=== PATIENT | female | born 1970 | race Caucasian/White ===

== ENCOUNTER 2019-04-09 00:02 | Observation (INO) | payer MEDICARE, SELFPAY ==
[2019-04-09] VITALS (15 sets, daily range): BP systolic 117–157; BP diastolic 48–102; PULSE 67–102; RESP 15–22; TEMP 36.4–36.7; O2SAT 93–99; BMI 61.9; BMI 60.3
--- NOTE | 2019-04-09 00:24 | DI.CT.S_ITS ---
PROCEDURE: CT SOFT TISSUE NECK W CON INDICATIONS: swelling abscess TECHNIQUE: After the administration of intravenous contrast, 3.0 mm axial sections acquired from the sella to the aortic arch. Additional oblique axial 3.0 mm sections acquired through the pharynx. 3 mm thick coronal and sagittal reformats were generated. For radiation dose reduction, the following was used: automated exposure control. COMPARISON: None. FINDINGS: Image quality: Diagnostic, with note made of motion artifact. Lymph nodes: Prominent lymph nodes are seen within the left submandibular region, which are not frankly enlarged. The largest solitary lymph node measures 5 x 12 mm. Vessels: Visualized vasculature appears patent. Neck spaces: Soft tissue swelling is seen within the left submandibular region, with associated fatty stranding. No focal fluid collections are seen to suggest abscess. The oropharynx, nasopharynx, and pharynx demonstrate no mucosal lesions. The vocal cords, false vocal cords, pyriform sinuses, epiglottis, vallecula, and tongue base all appear normal. Glands: The left submandibular gland is mildly more prominent and hyperenhancing compared to the right submandibular gland. The parotid glands appear normal. Thyroid gland demonstrates no significant CT abnormality. Miscellaneous: Visualized brain and orbits appear normal. Lung apices appear clear. Superficial soft tissues appear normal. Bones: No related bone abnormality is seen. No osteomyelitis. No suspicious bony lesions. Visualized sinuses and mastoids appear unremarkable. IMPRESSION: Left submandibular soft tissue swelling and fatty stranding with mildly enlarged lymph nodes (which are considered to be reactive). No drainable abscess can be seen. The left submandibular gland is slightly more prominent and hyperenhancing than the right. This may be reactive in nature or the cause of inflammation may be related to the left submandibular gland. Note: No significant discrepancy from the preliminary report. Dictated by: Abad Whatley M.D. on 04/09/2019 at 7:37 Approved by: Abad Whatley M.D. on 04/09/2019 at 7:41
--- NOTE | 2019-04-09 00:31 | ED.DENTAL ---
HPI - Dental/Oral General Chief complaint: Dental/Oral Stated complaint: Cracked tooth Time Seen by Provider: 04/09/19 00:16 Source: patient Mode of arrival: ambulatory Limitations: no limitations History of Present Illness HPI Narrative: Patient is a 49-year-old female who presents with all swelling under her tongue and neck swelling. She states that she cracked a tooth (left lower) 1 week ago she saw a dentist a few days ago she scheduled to have the tooth removed next week. However this evening she noticed that under her tongue started swelling and she is having difficulty swallowing and she feels like her neck is expanding. She still able talk she denies hoarseness of voice. She is not currently on any antibiotics. Related Data Home Medications Medication Instructions Recorded Confirmed duloxetine 120 mg PO DAILY 04/09/19 04/09/19 levothyroxine 125 mcg PO DAILY 04/09/19 04/09/19 tizanidine 4 mg PO PRN PRN 04/09/19 04/09/19 Allergies Allergy/AdvReac Type Severity Reaction Status Date / Time cephalexin [From Keflex] Allergy Verified 04/09/19 00:14 doxycycline Allergy Verified 04/09/19 00:14 metronidazole [From Flagyl] Allergy Verified 04/09/19 00:14 Sulfa (Sulfonamide Allergy Verified 04/09/19 00:14 Antibiotics) Review of Systems Review of Systems ROS Unobtainable: All systems reviewed & are unremarkable except as noted in HPI and below Constitutional Denies chills, Denies fever(s), Denies lethargy and Denies weakness Eyes Denies change in vision, Denies eye discharge, Denies irritation and Denies loss of vision ENT Ears, Nose, Mouth, and Throat: Reports as per HPI, Reports throat swelling and Reports tongue swelling Cardiovascular Denies chest pain, Denies irregular heart rhythm, Denies lightheadedness, Denies palpitations, Denies dyspnea, Denies dyspnea on exertion and Denies orthopnea Respiratory Denies cough, Denies dyspnea, Denies dyspnea on exertion and Denies wheezing Gastrointestinal Gastrointestinal: Denies abdominal pain, Denies change in bowel habits, Denies diarrhea, Denies nausea and Denies vomiting Genitourinary Denies hematuria, Denies flank pain, Denies urinary incontinence and Denies urinary urgency Musculoskeletal Denies back pain, Denies muscle weakness, Denies numbness and Denies tingling Integumentary/Breasts Denies pruritus, Denies erythema, Denies rash and Denies wounds Neurologic Denies loss of vision, Denies numbness, Denies tingling and Denies weakness Endocrine Denies palpitations Allergic/Immunologic Reports throat swelling, Reports tongue swelling and Denies wheezing [facility] Medical History Hypertension (Acute) Hypothyroid (Acute) Social History Smoking Status: Unknown if ever smoked Social History Smoking Status: Unknown if ever smoked Exam Initial Vital Signs Initial Vital Signs: Vital Signs Temperature 97.7 F 04/09/19 00:08 Pulse Rate 102 H 04/09/19 00:08 Respiratory Rate 15 04/09/19 00:08 Blood Pressure 148/102 H 04/09/19 00:08 Pulse Oximetry 97 04/09/19 00:08 GENERAL: Obese female and in no acute distress. HEENT: Head atraumatic,EOMI, pupils reactive, MOUTH: She does have swelling anterior underneath her tongue. No dental abscess. NECK: Swelling under left submandibular area CARDIOVASCULAR: Regular rate and rhythm without murmurs, rubs or gallops. RESPIRATORY: Breath sounds equal bilaterally, no wheezes rales or rhonchi. ABDOMEN: Soft, nontender. Normoactive bowel sounds all 4 quadrants. No guarding or rebound. EXTREMITIES: Normal range of motion, no clubbing or edema. Neurovascularly intact NEUROLOGICAL: Alert and oriented x4.Normal gait and speech. Cranial nerves II through XII grossly intact. SKIN: Warm, dry, no laceration, no petechiae, no rashes or lesions. Course Orders Ordered: ED Orders 04/09/19 00:24 CT soft tissue neck w con Stat 04/09/19 00:35 Complete Blood Count AUTO DIFF Stat Comprehensive Metabolic Panel Stat Lactate (Lactic Acid) Stat Procalcitonin Stat 04/09/19 00:54 Blood Culture Stat Sodium Chloride (Normal Saline 0.9%) 1,000 mls @ 200 mls/hr IV CONT LUMA Last Admin: 04/09/19 00:54 Dose: 200 mls/hr Discontinued Medications Dexamethasone (Decadron) 10 mg IV NOW ONE Stop: 04/09/19 00:25 Last Admin: 04/09/19 00:54 Dose: 10 mg Dexamethasone (Decadron) 10 mg IV NOW ONE Stop: 04/09/19 02:11 Last Admin: 04/09/19 02:21 Dose: 10 mg Hydromorphone HCl (Dilaudid) 0.5 mg IV NOW ONE Stop: 04/09/19 02:28 Last Admin: 04/09/19 02:30 Dose: 0.5 mg Ampicillin Sodium/Sulbactam (Sodium 3 gm/ Sodium Chloride) 100 mls @ 100 mls/hr IV NOW ONE Stop: 04/09/19 00:25 Last Admin: 04/09/19 01:06 Dose: 100 mls/hr Morphine Sulfate (Morphine) 4 mg IV NOW ONE Stop: 04/09/19 00:52 Last Admin: 04/09/19 00:54 Dose: 4 mg Consultations Consultation #1: DR. JACKMAN ENT UPDATED PATIENT'S SYMPTOMS TEST RESULTS CONCERN FOR YANA ANGINA. AGREES WITH ADMISSION TO HOSPITALIST RECOMMEND DECADRON 10 MG EVERY 12 HOURS AND IV ANTIBIOTICS. Call if patient is worsening. At but at this time no need for any surgical intervention. Time: 02:07 Consultation #2: Rupa HUA, updated patient's symptoms test results agrees with admission Time: 02:15 Vital Signs - 8 hr 04/09/19 00:08 Temperature 97.7 F Pulse Rate 102 H Respiratory Rate 15 Blood Pressure 148/102 H Pulse Oximetry 97 MDM - Dental/Oral Lab Data Attestation: I reviewed the patient's lab results. Result diagrams: 04/09/19 00:35 04/09/19 00:35 Lab Results 04/09/19 04/09/19 04/09/19 Range/Units 00:35 00:35 00:35 WBC 8.8 (4.5-11.0) X10^3/uL RBC 4.35 (4.0-5.2) X10^6/uL Hgb 12.9 (12.0-16.0) g/dL Hct 38.3 (36-46) % MCV 88.0 (80-100) fL MCH 29.7 (26-34) PG MCHC 33.7 (30-36) % RDW 14.4 (11.6-14.8) % Plt Count 266 (150-400) X10^3/uL Neut % (Auto) 70.3 (50-75) % Lymph % (Auto) 21.9 L (25-40) % [place] % (Auto) 6.5 (3-14) % Eos % (Auto) 0.9 L (2-4) % Baso % (Auto) 0.4 (0-2) % Neut # (Auto) 6200 (2562-3726) /uL Lymph # (Auto) 1900 (1250-5577) /uL [place] # (Auto) 600 (0-900) /uL Eos # (Auto) 100 (0-450) /uL Baso # (Auto) 0 (0-100) /uL Sodium 139 (137-145) mmol/L Potassium 3.9 (3.4-5.1) mmol/L Chloride 103 (98-107) mmol/L Carbon Dioxide 25 (22-32) mmol/L BUN 22 H (7-17) mg/dL Creatinine 0.70 (0.52-1.04) mg/dL Estimated GFR > 60.0 (>60) mL/min BUN/Creatinine Ratio 31.4 H (6-22) Glucose 136 H (70-100) mg/dL Lactate (0.7-2.1) mmol/L Calcium 9.2 (8.4-10.2) mg/dL Total Bilirubin 0.6 (0.2-1.3) mg/dL AST 31 (14-36) IU/L ALT 47 (9-52) IU/L Alkaline Phosphatase 90 (38-126) U/L Total Protein 7.9 (6.3-8.2) g/dL Albumin 4.4 (3.5-5.0) g/dL Globulin 3.5 (1.7-4.1) g/dL Albumin/Globulin Ratio 1.3 (1.0-2.8) Procalcitonin < 0.05 (<0.5) ng/mL 04/09/19 Range/Units 00:35 WBC (4.5-11.0) X10^3/uL RBC (4.0-5.2) X10^6/uL Hgb (12.0-16.0) g/dL Hct (36-46) % MCV (80-100) fL MCH (26-34) PG MCHC (30-36) % RDW (11.6-14.8) % Plt Count (150-400) X10^3/uL Neut % (Auto) (50-75) % Lymph % (Auto) (25-40) % [place] % (Auto) (3-14) % Eos % (Auto) (2-4) % Baso % (Auto) (0-2) % Neut # (Auto) (1021-3807) /uL Lymph # (Auto) (8151-9099) /uL [place] # (Auto) (0-900) /uL Eos # (Auto) (0-450) /uL Baso # (Auto) (0-100) /uL Sodium (137-145) mmol/L Potassium (3.4-5.1) mmol/L Chloride (98-107) mmol/L Carbon Dioxide (22-32) mmol/L BUN (7-17) mg/dL Creatinine (0.52-1.04) mg/dL Estimated GFR (>60) mL/min BUN/Creatinine Ratio (6-22) Glucose (70-100) mg/dL Lactate 1.2 (0.7-2.1) mmol/L Calcium (8.4-10.2) mg/dL Total Bilirubin (0.2-1.3) mg/dL AST (14-36) IU/L ALT (9-52) IU/L Alkaline Phosphatase (38-126) U/L Total Protein (6.3-8.2) g/dL Albumin (3.5-5.0) g/dL Globulin (1.7-4.1) g/dL Albumin/Globulin Ratio (1.0-2.8) Procalcitonin (<0.5) ng/mL Imaging Data CT soft tissue neck: 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 No apical her dental abscess evidence of osteomyelitis MDM Narrative Medical decision making narrative: At this time patient's symptoms get significantly concerning for Yana's angina. She is still able to manage her own secretions and speak clearly. She has obvious swelling on the left submandibular area. Overall does not look septic. Blood work is reassuring blood pressure has been stable. At this time no indication for ENT for intervention. Patient needs close monitoring of airway, antibiotics and steroids. Discharge Plan Departure Patient Disposition: Admitted As Inpatient Clinical Impression: Angina, Yana Admit Date/Time: 04/09/19 02:39 Admit Provider: Ashwin Hall
--- NOTE | 2019-04-09 00:36 | ED_ITS ---
HPI - Dental/Oral General Chief complaint: Dental/Oral Stated complaint: Cracked tooth Time Seen by Provider: 04/09/19 00:16 Source: patient Mode of arrival: ambulatory Limitations: no limitations History of Present Illness HPI Narrative: Patient is a 49-year-old female who presents with all swelling under her tongue and neck swelling. She states that she cracked a tooth (left lower) 1 week ago she saw a dentist a few days ago she scheduled to have the tooth removed next week. However this evening she noticed that under her tongue started swelling and she is having difficulty swallowing and she feels like her neck is expanding. She still able talk she denies hoarseness of voice. She is not currently on any antibiotics. Related Data Home Medications Medication Instructions Recorded Confirmed duloxetine 120 mg PO DAILY 04/09/19 04/09/19 levothyroxine 125 mcg PO DAILY 04/09/19 04/09/19 tizanidine 4 mg PO PRN PRN 04/09/19 04/09/19 Allergies Allergy/AdvReac Type Severity Reaction Status Date / Time cephalexin [From Keflex] Allergy Verified 04/09/19 00:14 doxycycline Allergy Verified 04/09/19 00:14 metronidazole [From Flagyl] Allergy Verified 04/09/19 00:14 Sulfa (Sulfonamide Allergy Verified 04/09/19 00:14 Antibiotics) Review of Systems Review of Systems ROS Unobtainable: All systems reviewed & are unremarkable except as noted in HPI and below Constitutional Denies chills, Denies fever(s), Denies lethargy and Denies weakness Eyes Denies change in vision, Denies eye discharge, Denies irritation and Denies loss of vision ENT Ears, Nose, Mouth, and Throat: Reports as per HPI, Reports throat swelling and Reports tongue swelling Cardiovascular Denies chest pain, Denies irregular heart rhythm, Denies lightheadedness, Denies palpitations, Denies dyspnea, Denies dyspnea on exertion and Denies orthopnea Respiratory Denies cough, Denies dyspnea, Denies dyspnea on exertion and Denies wheezing Gastrointestinal Gastrointestinal: Denies abdominal pain, Denies change in bowel habits, Denies diarrhea, Denies nausea and Denies vomiting Genitourinary Denies hematuria, Denies flank pain, Denies urinary incontinence and Denies urinary urgency Musculoskeletal Denies back pain, Denies muscle weakness, Denies numbness and Denies tingling Integumentary/Breasts Denies pruritus, Denies erythema, Denies rash and Denies wounds Neurologic Denies loss of vision, Denies numbness, Denies tingling and Denies weakness Endocrine Denies palpitations Allergic/Immunologic Reports throat swelling, Reports tongue swelling and Denies wheezing [facility] Medical History Hypertension (Acute) Hypothyroid (Acute) Social History Smoking Status: Unknown if ever smoked Social History Smoking Status: Unknown if ever smoked Exam Initial Vital Signs Initial Vital Signs: Vital Signs Temperature 97.7 F 04/09/19 00:08 Pulse Rate 102 H 04/09/19 00:08 Respiratory Rate 15 04/09/19 00:08 Blood Pressure 148/102 H 04/09/19 00:08 Pulse Oximetry 97 04/09/19 00:08 GENERAL: Obese female and in no acute distress. HEENT: Head atraumatic,EOMI, pupils reactive, MOUTH: She does have swelling anterior underneath her tongue. No dental abscess. NECK: Swelling under left submandibular area CARDIOVASCULAR: Regular rate and rhythm without murmurs, rubs or gallops. RESPIRATORY: Breath sounds equal bilaterally, no wheezes rales or rhonchi. ABDOMEN: Soft, nontender. Normoactive bowel sounds all 4 quadrants. No guarding or rebound. EXTREMITIES: Normal range of motion, no clubbing or edema. Neurovascularly intact NEUROLOGICAL: Alert and oriented x4.Normal gait and speech. Cranial nerves II through XII grossly intact. SKIN: Warm, dry, no laceration, no petechiae, no rashes or lesions. Course Orders Ordered: ED Orders 04/09/19 00:24 CT soft tissue neck w con Stat 04/09/19 00:35 Complete Blood Count AUTO DIFF Stat Comprehensive Metabolic Panel Stat Lactate (Lactic Acid) Stat Procalcitonin Stat 04/09/19 00:54 Blood Culture Stat Sodium Chloride (Normal Saline 0.9%) 1,000 mls @ 200 mls/hr IV CONT LUMA Last Admin: 04/09/19 00:54 Dose: 200 mls/hr Discontinued Medications Dexamethasone (Decadron) 10 mg IV NOW ONE Stop: 04/09/19 00:25 Last Admin: 04/09/19 00:54 Dose: 10 mg Dexamethasone (Decadron) 10 mg IV NOW ONE Stop: 04/09/19 02:11 Last Admin: 04/09/19 02:21 Dose: 10 mg Hydromorphone HCl (Dilaudid) 0.5 mg IV NOW ONE Stop: 04/09/19 02:28 Last Admin: 04/09/19 02:30 Dose: 0.5 mg Ampicillin Sodium/Sulbactam (Sodium 3 gm/ Sodium Chloride) 100 mls @ 100 mls/hr IV NOW ONE Stop: 04/09/19 00:25 Last Admin: 04/09/19 01:06 Dose: 100 mls/hr Morphine Sulfate (Morphine) 4 mg IV NOW ONE Stop: 04/09/19 00:52 Last Admin: 04/09/19 00:54 Dose: 4 mg Consultations Consultation #1: DR. JACKMAN ENT UPDATED PATIENT'S SYMPTOMS TEST RESULTS CONCERN FOR YANA ANGINA. AGREES WITH ADMISSION TO HOSPITALIST RECOMMEND DECADRON 10 MG EVERY 12 HOURS AND IV ANTIBIOTICS. Call if patient is worsening. At but at this time no need for any surgical intervention. Time: 02:07 Consultation #2: Rupa HUA, updated patient's symptoms test results agrees with admission Time: 02:15 Vital Signs - 8 hr 04/09/19 00:08 Temperature 97.7 F Pulse Rate 102 H Respiratory Rate 15 Blood Pressure 148/102 H Pulse Oximetry 97 MDM - Dental/Oral Lab Data Attestation: I reviewed the patient's lab results. Result diagrams: 04/09/19 00:35 04/09/19 00:35 Lab Results 04/09/19 04/09/19 04/09/19 Range/Units 00:35 00:35 00:35 WBC 8.8 (4.5-11.0) X10^3/uL RBC 4.35 (4.0-5.2) X10^6/uL Hgb 12.9 (12.0-16.0) g/dL Hct 38.3 (36-46) % MCV 88.0 (80-100) fL MCH 29.7 (26-34) PG MCHC 33.7 (30-36) % RDW 14.4 (11.6-14.8) % Plt Count 266 (150-400) X10^3/uL Neut % (Auto) 70.3 (50-75) % Lymph % (Auto) 21.9 L (25-40) % [place] % (Auto) 6.5 (3-14) % Eos % (Auto) 0.9 L (2-4) % Baso % (Auto) 0.4 (0-2) % Neut # (Auto) 6200 (2692-2374) /uL Lymph # (Auto) 1900 (9925-4854) /uL [place] # (Auto) 600 (0-900) /uL Eos # (Auto) 100 (0-450) /uL Baso # (Auto) 0 (0-100) /uL Sodium 139 (137-145) mmol/L Potassium 3.9 (3.4-5.1) mmol/L Chloride 103 (98-107) mmol/L Carbon Dioxide 25 (22-32) mmol/L BUN 22 H (7-17) mg/dL Creatinine 0.70 (0.52-1.04) mg/dL Estimated GFR > 60.0 (>60) mL/min BUN/Creatinine Ratio 31.4 H (6-22) Glucose 136 H (70-100) mg/dL Lactate (0.7-2.1) mmol/L Calcium 9.2 (8.4-10.2) mg/dL Total Bilirubin 0.6 (0.2-1.3) mg/dL AST 31 (14-36) IU/L ALT 47 (9-52) IU/L Alkaline Phosphatase 90 (38-126) U/L Total Protein 7.9 (6.3-8.2) g/dL Albumin 4.4 (3.5-5.0) g/dL Globulin 3.5 (1.7-4.1) g/dL Albumin/Globulin Ratio 1.3 (1.0-2.8) Procalcitonin < 0.05 (<0.5) ng/mL 04/09/19 Range/Units 00:35 WBC (4.5-11.0) X10^3/uL RBC (4.0-5.2) X10^6/uL Hgb (12.0-16.0) g/dL Hct (36-46) % MCV (80-100) fL MCH (26-34) PG MCHC (30-36) % RDW (11.6-14.8) % Plt Count (150-400) X10^3/uL Neut % (Auto) (50-75) % Lymph % (Auto) (25-40) % [place] % (Auto) (3-14) % Eos % (Auto) (2-4) % Baso % (Auto) (0-2) % Neut # (Auto) (0976-3188) /uL Lymph # (Auto) (4804-7227) /uL [place] # (Auto) (0-900) /uL Eos # (Auto) (0-450) /uL Baso # (Auto) (0-100) /uL Sodium (137-145) mmol/L Potassium (3.4-5.1) mmol/L Chloride (98-107) mmol/L Carbon Dioxide (22-32) mmol/L BUN (7-17) mg/dL Creatinine (0.52-1.04) mg/dL Estimated GFR (>60) mL/min BUN/Creatinine Ratio (6-22) Glucose (70-100) mg/dL Lactate 1.2 (0.7-2.1) mmol/L Calcium (8.4-10.2) mg/dL Total Bilirubin (0.2-1.3) mg/dL AST (14-36) IU/L ALT (9-52) IU/L Alkaline Phosphatase (38-126) U/L Total Protein (6.3-8.2) g/dL Albumin (3.5-5.0) g/dL Globulin (1.7-4.1) g/dL Albumin/Globulin Ratio (1.0-2.8) Procalcitonin (<0.5) ng/mL Imaging Data CT soft tissue neck: 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 No apical her dental abscess evidence of osteomyelitis MDM Narrative Medical decision making narrative: At this time patient's symptoms get significantly concerning for Yana's angina. She is still able to manage her own secretions and speak clearly. She has obvious swelling on the left subm andibular area. Overall does not look septic. Blood work is reassuring blood pressure has been stable. At this time no indication for ENT for intervention. Patient needs close monitoring of airway, antibiotics and steroids. Discharge Plan Departure Patient Disposition: Admitted As Inpatient Clinical Impression: Angina, Yana Admit Date/Time: 04/09/19 02:39 Admit Provider: Ashwin Hall
[2019-04-09 00:51] LABS: Add Manual Diff / Slide Review NO; Basophils Absolute Auto 0 /uL (0-100); Basophils Percent Auto 0.4 % (0-2); Eosinophils Absolute Auto 100 /uL (0-450); Eosinophils Percent Auto 0.9 % (2-4); Hematocrit 38.3 % (36-46); Hemoglobin 12.9 g/dL (12.0-16.0); Lymphocytes Absolute Auto 1900 /uL (1100-4500); Lymphocytes Percent Auto 21.9 % (25-40); Mean Corpuscular HGB Conc 33.7 % (30-36); Mean Corpuscular Hemoglobin 29.7 PG (26-34); Monocytes Absolute Auto 600 /uL (0-900); Monocytes Percent Auto 6.5 % (3-14); Neutrophils Absolute Auto 6200 /uL (1500-7000); Neutrophils Percent Auto 70.3 % (50-75); Platelet Count 266 X10^3/uL (150-400); Red Blood Cell Count 4.35 X10^6/uL (4.0-5.2); Red Cell Distribution Width 14.4 % (11.6-14.8); White Blood Cell Count 8.8 X10^3/uL (4.5-11.0)
[2019-04-09] MEDS: SODIUM CHLORIDE 0.9% 1,000 ML 200 ML IV (00:54)
[2019-04-09] MEDS: DEXAMETHASONE 10 MG/ML VIAL IV ×3 (00:54→21:14)
[2019-04-09] MEDS: MORPHINE 4 MG/ML INJ IV (00:54)
[2019-04-09 00:59] LABS: Lactate (Lactic Acid) 1.2 mmol/L (0.7-2.1)
[2019-04-09 01:02] LABS: Alanine Aminotransferase 47 IU/L (9-52); Albumin 4.4 g/dL (3.5-5.0); Albumin Globulin Ratio 1.3 (1.0-2.8); Alkaline Phosphatase 90 U/L (38-126); Aspartate Aminotransferase 31 IU/L (14-36); BUN Creatinine Ratio 31.4 (6-22); Bilirubin Total 0.6 mg/dL (0.2-1.3); Blood Urea Nitrogen 22 mg/dL (7-17); Calcium 9.2 mg/dL (8.4-10.2); Carbon Dioxide 25 mmol/L (22-32); Chloride 103 mmol/L (98-107); Estimated Glomerular Filt Rate > 60.0 mL/min (>60); Globulin 3.5 g/dL (1.7-4.1); Glucose 136 mg/dL (70-100); HEMOLYSIS < 15 (0-50); Potassium 3.9 mmol/L (3.4-5.1); Sodium 139 mmol/L (137-145); Total Protein 7.9 g/dL (6.3-8.2)
[2019-04-09] MEDS: AMPICILLIN/SULBACTAM 3 GM 3 GM in SODIUM CHLORIDE 0.9% 100 ML IV ×5 (01:06→23:55)
[2019-04-09 01:17] LABS: Procalcitonin < 0.05 ng/mL (<0.5)
[2019-04-09] MEDS: HYDROMORPHONE 1 MG INJ 0.5 MG IV (02:30)
--- NOTE | 2019-04-09 04:10 | PM.HP.1 ---
History of Present Illness Date Patient Seen: 04/09/19 Time Patient Seen: 04:11 Chief complaint: Cracked tooth Narrative: The patient is a 49-year-old female who presented to the ED on 04/09/2019 out of concern for pain and swelling left sub-mandibular area and left lower palate. Symptoms initially noted on 04/08/2019 at approximately 1200. Progressively worsening swelling and development of pain of the sub-mandibular area, left lower palate and part of left buccal area by 2300. Associated symptoms include trismus / stiffness of lower jaw and difficulty swallowing. Denies fever, chills, purulent drainage, hoarse voice, neck pain/stiffness, shortness of breath, or difficulty managing oral secretions. One week ago patient experienced pain of the back left molar area. Sub-mandibular pain is exacerbated with swallowing, palpation of the affected site, and movement of jaw. No remitting factors. Pain was relieved with dilaudid, which patient received in ED. On she was seen by the dentist. At that time she had x-rays of the jaw/oral area and was told that she has a cracked tooth. No abscess was noted at that time, per patient's report. She was scheduled for tooth extraction on Wednesday, April 14. Patient History Medical History (Updated 04/09/19 @ 05:02 by MELITA Rodas) ADD (attention deficit disorder) (Chronic) Asthma (Chronic) Fibromyalgia (Chronic) GERD (gastroesophageal reflux disease) (Chronic) Hiatal hernia (Chronic) Hypertension (Chronic) Hypothyroid (Chronic) Hypothyroidism (Chronic) IBS (irritable bowel syndrome) (Chronic) Morbid obesity with body mass index (BMI) greater than or equal to 50 (Chronic) Obstructive sleep apnea (Chronic) Pre-diabetes (Chronic) Surgical History (Updated 04/09/19 @ 05:04 by MELITA Rodas) H/O section (Chronic) Hx of hernia repair (Chronic) S/P appendectomy (Chronic) S/P cholecystectomy (Chronic) S/P partial hysterectomy (Chronic) S/P tonsillectomy (Chronic) Family History Father Coronary artery disease Hypertension Social History household members: significant other Smoking Status: Former smoker alcohol intake: former Family & Social History Family History Father Coronary artery disease Hypertension Social History: household members Significant other Prior Living Arrangements RV Patient lives in an . Lives with Chip walsh. She has 3 children, grown and do not live with patient. Patient does not work / disabled. Safety & Behavioral: Feels Safe in Current Yes Environment Been Physically Hurt or No Threatened By a Person Suicidal Ideation Description None Tobacco & Substance use: Smoking Status Former smoker. Reports 5 year total history, 1 pack per week. alcohol intake former alcohol intake frequency holiday/special occasion Substance Use Type Denies current use Meds Home Medications Medication Instructions Recorded Confirmed Type duloxetine 120 mg PO DAILY 04/09/19 04/09/19 History lansoprazole [Prevacid 24Hr] 15 mg PO DAILY 04/09/19 04/09/19 History levothyroxine 125 mcg PO DAILY 04/09/19 04/09/19 History tizanidine 4 mg PO PRN PRN 04/09/19 04/09/19 History Allergies Allergy/AdvReac Type Severity Reaction Status Date / Time cephalexin [From Keflex] Allergy Verified 04/09/19 00:14 doxycycline Allergy Verified 04/09/19 00:14 metronidazole [From Flagyl] Allergy Verified 04/09/19 00:14 Sulfa (Sulfonamide Allergy Verified 04/09/19 00:14 Antibiotics) Review of Systems Review of Systems All systems reviewed & are unremarkable except as noted in HPI and below Exam Vital Signs (past 8 hours): - 04/09/19 00:08 04/09/19 01:00 04/09/19 02:00 Temperature 97.7 F Pulse Rate 102 H 76 73 Respiratory Rate 15 17 20 Blood Pressure 148/102 H Blood Pressure [Right Arm] 152/83 H 127/71 Pulse Oximetry 97 98 99 04/09/19 03:00 04/09/19 03:23 Temperature 97.8 F Pulse Rate 72 73 Respiratory Rate 18 18 Blood Pressure 132/72 Blood Pressure [Right Arm] 124/72 Pulse Oximetry 95 96 Oxygen Delivery Method Room Air Oxygen Flow Rate 0 Narrative Exam Narrative: Constitutional: NAD, Morbidly obese habitus, BMI 60. Neurologic: AOx3, no focal neurological deficits, GCS 15 Head: NC, AT Eyes: PERRL, EOMI, Ears: external ears normal, no otorrhea Nose: external nose normal, no rhinorrhea or epistaxis Throat: MMM, oropharynx w/o exudate Posterior oropharynx is difficult to visualize, no erythema of buccal area. Voice is not muffled, no drooling or evidence of ineffective secretion management Tongue is mildly swollen. Unilateral swelling and tenderness of lower left soft palate Cavities present (multiple teeth), difficult to visualize molars of posterior pharynx Sub-mandibular area slightly swollen on appearance, hypersensitive / painful to minor touch (difficult to palpate due to severe pain) No crepitus at the sub-mandibular area Trismus of jaw, pain and stiffness reported with opening Neck: no masses, lymphadenopathy, or JVD Chest / Respiratory: equal chest rise, unlabored respiratory effort, no tachypnea, CTAB, on room air, no audible stridor Heart / CV: S1S2, no murmur Abdomen / GI: round, central obesity, hernia noted, NT, ND, + BS, no organomegaly : no suprapubic tenderness, no CVA Peripheral / Vascular: warm to touch, DP and PT pulses palpable, no edema Musc: full ROM of upper and lower extremities, adequate muscle tone and bulk Skin: no ecchymosis or suspicious lesions / ulcers Objective Labs Result Diagrams: 04/09/19 00:35 04/09/19 00:35 Labs: Laboratory Results - last 24 hr 04/09/19 04/09/19 04/09/19 00:35 00:35 00:35 WBC 8.8 RBC 4.35 Hgb 12.9 Hct 38.3 MCV 88.0 MCH 29.7 MCHC 33.7 RDW 14.4 Plt Count 266 Neut % (Auto) 70.3 Lymph % (Auto) 21.9 L [place] % (Auto) 6.5 Eos % (Auto) 0.9 L Baso % (Auto) 0.4 Neut # (Auto) 6200 Lymph # (Auto) 1900 [place] # (Auto) 600 Eos # (Auto) 100 Baso # (Auto) 0 Sodium 139 Potassium 3.9 Chloride 103 Carbon Dioxide 25 BUN 22 H Creatinine 0.70 Estimated GFR > 60.0 BUN/Creatinine Ratio 31.4 H Glucose 136 H Lactate Calcium 9.2 Total Bilirubin 0.6 AST 31 ALT 47 Alkaline Phosphatase 90 Total Protein 7.9 Albumin 4.4 Globulin 3.5 Albumin/Globulin Ratio 1.3 Procalcitonin < 0.05 04/09/19 00:35 WBC RBC Hgb Hct MCV MCH MCHC RDW Plt Count Neut % (Auto) Lymph % (Auto) [place] % (Auto) Eos % (Auto) Baso % (Auto) Neut # (Auto) Lymph # (Auto) [place] # (Auto) Eos # (Auto) Baso # (Auto) Sodium Potassium Chloride Carbon Dioxide BUN Creatinine Estimated GFR BUN/Creatinine Ratio Glucose Lactate 1.2 Calcium Total Bilirubin AST ALT Alkaline Phosphatase Total Protein Albumin Globulin Albumin/Globulin Ratio Procalcitonin Assessment & Plan Assessment & Plan narrative: Patient is being admitted for sub-mandibular space infection, IV abx, steroids, pain control, IV hydration, and monitoring of airway. Submandibular space infection, acute, present on admission, active - Admit to ICU for 24 hour monitoring, as this is a rapidly spreading infection Patient is morbidly obese and may be difficult intubation, will need close monitoring of airway - Continuous airway monitoring Communication order placed in chart for nursing staff to monitor for muffled voice, drooling, stridor, dyspnea, cyanosis - Consult respiratory theapy, re: eval and treat, monitor airway Communication note made to have equipment available for nasal intubation, in an event of an emergency - Blood CX x2 collected in ED, results pending, to be followed. No leukocytosis. Lactate WNL. No s/s of SIRS or sepsis. - Obtain UA - Unasyn Q6H, received x 1 dose in ED Patient has a listed allergy to cephalexin and metronidazole - Dexamethasome 10 mg Q12H (communicated by ED provider as a recommendation from ENT, no official ENT consult) - Glu POC Q6H while NPO, SSI low dose, re: on dexamethasone - Strict NPO - Consult speech, eval swallowing, aspiration - Scopolomine patch, to help in management of oral secreations - Supportive care: IV hydration, pain control Acute pain in the setting of sub-mandibular infection, present on admission, active - Toradol 30 mg Q8H x5 doses, then re-evaluate. Renal fx stable, will monitor with routine lab. - Dilaudid 0.5 mg IVQ4H for breakthrough pain only. Narcan prn for oversedation. Hypovolemia, acute, present on admission, active - Received 550 ml of NS in ED. Continue maintenance IVF at 100 ml/hr Ineffective airway clearance, acute, present on admission, active - At risk for airway obstruction. At risk for difficult intubation. 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 Will convert to IV formulation of 62.5 mcg QD. GERD w/ hiatal hernia, chronic condition, present on admission, stable - Protonix 40 mg IV BID Morbid obesity (BMI > 50), chronic condition, present on admission Discussed concern for potential complication of airway obstruction and difficult intubation. Made patient aware that in her particular care oropharyngeal intubation is not ideal and very traumatic. She was made aware of alternative, nasal route or tracheostomy. This would take place in emergent situation only. Patient reports in agreement and reports understanding. Also, this was discussed with nurse and RT. Discussed with RT to make sure or verify that appropriate equipment is available in case emergent situation took place. Weight reduction recommended, patient is currently undergoing an outpatient work-up for barriatric surgery. VTE prophylaxis: Heparin SQ Full Code. No formal health directive. Surrogate decision maker is jillian Padron. Home medications reviewed and reconciled accordingly. Quality VTE Deep Vein Thrombosis/Pulmonary Embolism Present on Admission: No
[2019-04-09] MEDS: SODIUM CHLORIDE 0.9% 1,000 ML 100 ML IV ×2 (04:22→16:11)
[2019-04-09] MEDS: KETOROLAC 30 MG/ML VIAL IV ×3 (05:39→21:15)
[2019-04-09] MEDS: HEPARIN 5,000 UNIT/ML VIAL 5000 UNIT SUBCUT ×3 (05:42→21:16)
[2019-04-09 05:56] LABS: RBC Urine None Seen (0-5/HPF); WBC Urine None Seen (0-5/HPF)
[2019-04-09 05:57] LABS: Appearance Urine UA CLEAR; Bilirubin Urine UA NEGATIVE (NEGATIVE); Color Urine UA YELLOW; Glucose Urine UA NEGATIVE (Negative); Ketones Urine UA NEGATIVE (NEGATIVE); Leukocyte Esterase Urine UA NEGATIVE (NEGATIVE); Nitrite Urine UA NEGATIVE (Negative); Occult Blood Urine UA NEGATIVE (Negative); Protein Urine UA NEGATIVE (Negative); Urobilinogen Urine UA 0.2 E.U./dL (0.2); pH Urine UA 6.5 (4.5-8.0)
[2019-04-09 06:04] LABS: Bacteria Urine Moderate (10-30); Culture Indicated Urine Cult Not Indicated; Squamous Epithelial Cell Urine 1-5 /HPF (0-5/HPF)
--- NOTE | 2019-04-09 08:26 | P.PN_ITS ---
Subjective Date Patient Seen: 04/09/19 Time Patient Seen: 08:26 Interval history: She is seen today to follow-up her left submandibular infection, fibromyalgia and chronic fatigue. She is also pending gastric bypass soon at [facility]. 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 Currently she is on Unasyn and dexamethasone. Exam Vital Signs (past 8 hours): - 04/09/19 01:00 04/09/19 02:00 04/09/19 03:00 Temperature Pulse Rate 76 73 72 Respiratory Rate 17 20 18 Blood Pressure Blood Pressure [Right Arm] 152/83 H 127/71 124/72 Pulse Oximetry 98 99 95 04/09/19 03:23 04/09/19 04:00 04/09/19 04:53 Temperature 97.8 F Pulse Rate 73 80 Respiratory Rate 18 17 16 Blood Pressure 132/72 155/69 H Blood Pressure [Right Arm] Pulse Oximetry 96 95 96 04/09/19 05:00 04/09/19 06:00 04/09/19 08:00 Temperature 98.1 F 97.7 F Pulse Rate 67 70 67 Respiratory Rate 18 16 22 Blood Pressure 131/80 117/69 142/77 H Blood Pressure [Right Arm] Pulse Oximetry 93 93 94 Oxygen Delivery Method Room Air Oxygen Flow Rate 0 Narrative Exam Narrative: She is alert and oriented x3, in no apparent distress Heart is regular rate and rhythm without murmur. Lungs are clear to auscultation bilaterally. The left submandibular area has some firmness without fluctuance. This area is mildly tender. There is no redness or warmth. There is no swelling visible in the mouth. Objective Labs Result Diagrams: 04/09/19 00:35 04/09/19 00:35 Labs: Laboratory Results - last 24 hr 04/09/19 04/09/19 04/09/19 00:35 00:35 00:35 WBC 8.8 RBC 4.35 Hgb 12.9 Hct 38.3 MCV 88.0 MCH 29.7 MCHC 33.7 RDW 14.4 Plt Count 266 Neut % (Auto) 70.3 Lymph % (Auto) 21.9 L [place] % (Auto) 6.5 Eos % (Auto) 0.9 L Baso % (Auto) 0.4 Neut # (Auto) 6200 Lymph # (Auto) 1900 [place] # (Auto) 600 Eos # (Auto) 100 Baso # (Auto) 0 Sodium 139 Potassium 3.9 Chloride 103 Carbon Dioxide 25 BUN 22 H Creatinine 0.70 Estimated GFR > 60.0 BUN/Creatinine Ratio 31.4 H Glucose 136 H Lactate Calcium 9.2 Total Bilirubin 0.6 AST 31 ALT 47 Alkaline Phosphatase 90 Total Protein 7.9 Albumin 4.4 Globulin 3.5 Albumin/Globulin Ratio 1.3 Procalcitonin < 0.05 Urine Color Urine Appearance Urine pH Ur Specific [place] Urine Protein Urine Glucose (UA) Urine Ketones Urine Occult Blood Urine Nitrate Urine Bilirubin Urine Urobilinogen Ur Leukocyte Esterase Urine RBC Urine WBC Ur Squamous Epith Cells Urine Bacteria Ur Culture Indicated? 04/09/19 04/09/19 00:35 05:45 WBC RBC Hgb Hct MCV MCH MCHC RDW Plt Count Neut % (Auto) Lymph % (Auto) [place] % (Auto) Eos % (Auto) Baso % (Auto) Neut # (Auto) Lymph # (Auto) [place] # (Auto) Eos # (Auto) Baso # (Auto) Sodium Potassium Chloride Carbon Dioxide BUN Creatinine Estimated GFR BUN/Creatinine Ratio Glucose Lactate 1.2 Calcium Total Bilirubin AST ALT Alkaline Phosphatase Total Protein Albumin Globulin Albumin/Globulin Ratio Procalcitonin Urine Color Yellow Urine Appearance Clear Urine pH 6.5 Ur Specific [place] 1.010 Urine Protein Negative Urine Glucose (UA) Negative Urine Ketones Negative Urine Occult Blood Negative Urine Nitrate Negative Urine Bilirubin Negative Urine Urobilinogen 0.2 Ur Leukocyte Esterase Negative Urine RBC None seen Urine WBC None seen Ur Squamous Epith Cells 1-5 /hpf Urine Bacteria Moderate (10-30) H Ur Culture Indicated? Cult not indicated Assessment & Plan Assessment & Plan narrative: Submandibular space infection, acute, present on admission, active - She feels much better already and also appears to be improved - currently in the ICU for 24 hour monitoring, as this was a rapidly spreading infection Patient is morbidly obese and may be difficult intubation, will need close monitoring of airway - Continuous airway monitoring Communication order placed in chart for nursing staff to monitor for mu ffled voice, drooling, stridor, dyspnea, cyanosis - Consult respiratory therapy, re: eval and treat, monitor airway Communication note made to have equipment available for nasal intubation, in an event of an emergency - Blood CX x2 collected in ED, results pending, to be followed. No leukocyto sis. Lactate WNL. No s/s of SIRS or sepsis. - Unasyn Q6H, received x 1 dose in ED Patient has a listed allergy to cephalexin and metronidazole - Dexamethasome 10 mg Q12H (communicated by ED provider as a recommendation from ENT, no official ENT consult) - Glu POC Q6H while NPO, SSI low dose, re: on dexamethasone - Strict NPO but may be able to advance diet later today - Consult speech, eval swallowing, aspiration - Scopolomine patch, to help in management of oral secreations - Supportive care: IV hydration, pain control Acute pain in the setting of sub-mandibular infection, present on admission, active - Toradol 30 mg Q8H x5 doses, then re-evaluate. Renal fx stable, will monitor with routine lab. - Dilaudid 0.5 mg IVQ4H for breakthrough pain only. Narcan prn for oversedation. Hypovolemia, acute, present on admission, active - Received 550 ml of NS in ED. Continue maintenance IVF at 100 ml/hr Ineffective airway clearance, acute, present on admission, active - At risk for airway obstruction. At risk for difficult intubation. 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 Will continue IV formulation of 62.5 mcg QD. GERD w/ hiatal hernia, chronic condition, present on admission, stable - Protonix 40 mg IV BID Quality VTE Deep Vein Thrombosis/Pulmonary Embolism Present on Admission: No
[2019-04-09] MEDS: PANTOPRAZOLE 40 MG VIAL IV (08:27)
[2019-04-09] MEDS: SCOPOLAMINE 1 PATCH TOP (08:32)
[2019-04-09] MEDS: HYDROMORPHONE 0.5 MG INJ IV ×3 (08:35→17:43)
[2019-04-09] MEDS: LEVOTHYROXINE INJ 100 MCG/5 ML VIAL 62.5 MCG IV (09:00)
[2019-04-09] MEDS: INSULIN ASPART 100 UNIT/ML INSULN PEN SUBCUT ×2 (12:16→17:39)
[2019-04-09] MEDS: DULOXETINE 30 MG CAPSULE 120 MG PO (13:03)
--- NOTE | 2019-04-09 13:50 | CM.IDA ---
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 PCP: Unknown Payer: Medicare Per chart review, [place] and there are no barriers indicated to safe return home; RV w/spouse. Pt somewhat irritated today per ROSELINE Ortiz about being NPO. Later provided suggestion for [place] for dental f/u and [facility] [place] in case a local health fair is upcoming, which can often provide free dental assessments. P: DC home w/supportive spouse when medically cleared. HARRISON Mullen Discharge Planning/Care Management CM Discharge Assessment Start: 04/09/19 13:47 Freq: Status: Active Protocol: Document 04/09/19 13:47 CHATO (Rec: 04/09/19 13:50 CHATO [id number]) Discharge Planning Assessment Assigned Rebeamer HARRISON Borja DPOA/Assigned Designee Name Chip Hawkins, spouse Contact Information [phone] Advance Directives? No History Provided By Patient Prior Living Arrangements RV Household Members significant other Independent with ADL's Yes Is patient alert and oriented? Yes Discharge Plan Home Transportation Arrangement Spouse Referrals Initiated None needed Review Status In Process
--- NOTE | 2019-04-09 14:41 | PC.NURSE ---
Am shift Pt is A/o x4, reports pain is better controlled. Swelling to L side of face improved greatly as well as pain. Swallowing remains uncomfortable 5/10 to pain scale. Scop patch placed to assist with secretions, as Pt had been reporting increased salivation. Denies nausea, no emesis. Strict NPO, Dr Abdi into see Pt, pleased with progress. Monitor. Remain ICU status. IVF infusing. Tele in place. 1400-Pt continues to do well this shift, tolerating advanced diet well. Ordering own meals, warm tea provided for sore throat. Update from Dr Abdi, Pt can become FC with Tele. Continue to monitor diet and pain control.
[2019-04-10 04:29] VITALS: BP 146/83; PULSE 91; RESP 20; TEMP 36.5; O2SAT 96
[2019-04-10] MEDS: SODIUM CHLORIDE 0.9% 1,000 ML 100 ML IV (04:52)
[2019-04-10] MEDS: AMPICILLIN/SULBACTAM 3 GM 3 GM in SODIUM CHLORIDE 0.9% 100 ML IV (06:02)
[2019-04-10] MEDS: HEPARIN 5,000 UNIT/ML VIAL 5000 UNIT SUBCUT (06:03)
[2019-04-10] MEDS: KETOROLAC 30 MG/ML VIAL IV (06:04)
[2019-04-10] MEDS: LEVOTHYROXINE 125 MCG TABLET PO (06:04)
[2019-04-10] MEDS: PANTOPRAZOLE 20 MG TABLET PO (06:04)
[2019-04-10 07:54] VITALS: BP 134/74; PULSE 61; RESP 20; TEMP 36.4; O2SAT 95
--- NOTE | 2019-04-10 08:12 | P.DS_ITS ---
History of Present Illness Date Patient Seen: 04/09/19 Chief complaint: Cracked tooth Narrative: Written by Ashwin HUA: The patient is a 49-year-old female who presented to the ED on 04/09/2019 out of concern for pain and swelling left sub-mandibular area and left lower palate. Symptoms initially noted on 04/08/2019 at approximately 1200. Progressively worsening swelling and development of pain of the sub-mandibular area, left lower palate and part of left buccal area by 2300. Associated symptoms include trismus / stiffness of lower jaw and difficulty swallowing. Denies fever, chills, purulent drainage, hoarse voice, neck pain/stiffness, shortness of breath, or difficulty managing oral secretions. One week ago patient experienced pain of the back left molar area. Sub-mandibular pain is exacerbated with swallowing, palpation of the affected site, and movement of jaw. No remitting factors. Pain was relieved with dilaudid, which patient received in ED. On she was seen by the dentist. At that time she had x-rays of the jaw/oral area and was told that she has a cracked tooth. No abscess was noted at that time, per patient's report. She was scheduled for tooth extraction on April 14. Discharge Providers Date of admission: 04/09/19 02:39 Discharge Date: 04/10/19 Consults: 04/09/19 03:58 Consult to Respiratory Therapy Evaluate & Treat Comment: Make sure supplies available for nasal intubation Physician Instructions: Evaluate and treat. Assess airway. 04/09/19 04:09 Consult to Speech Therapy Evaluate & Treat Comment: swallow evaluation, aspiration Physician Instructions: Evaluate and treat Discharge provider: Rayna Barnett DO Summary Discharge Diagnosis: 1. Acute submandibular space infection with pain, present on admission. Re solving. 2. Acute ineffective airway clearance, present on admission. Resolved. 3. Acute hypovolemia, present on admission. Resolved. 4. Hypothyroidism, chronic, present on admission. Stable. 5. GERD with hiatal hernia, chronic, present on admission. Stable. 6. Morbid obesity, chronic, present on admission. Stable. 7. Obstructive sleep apnea, chronic, present on admission. Stable. Hospital Course: Nara Pimentel is a 49-year-old female with a past medical history significant for hypertension, prediabetes, hypothyroidism, GERD, morbid obesity, obstructive sleep apnea who presented to the ED for pain and swelling of left sub-mandibular area and left lower palate. 1. Acute submandibular space infection with pain, present on admission. Resolving. -Patient presented with increasing pain and swelling of since submandibular area on left subsequent to cracked molar. -Patient initially placed in ICU due to need for close airway monitoring as she would be a difficult intubation due to morbid obesity and submandibular infection. Communication order placed in chart for nursing staff to monitor for muffled voice, drooling, stridor, dyspnea, cyanosis. Patient continued to protect airway and did not need intubation. -Consulted respiratory therapy for evaluation and treatment and to monitor airway. Communication order placed to have equipment available for nasal intubation, in an event of an emergency. May use supplemental oxygen if needed to maintain oxygen saturation 88-92%. -Blood cultures x2 had no growth to date. No leukocytosis. Lactate normal. No signs or symptoms of SIRS or sepsis. -Received Unasyn 3 g IV x1 in ED. Continued Unasyn 3 g every 6 hours and discharged on Augmentin twice daily to complete total of 14 day course. Patient has a listed allergy to cephalexin and metronidazole -Continued dexamethasome 10 mg every 12 hours (communicated by ED provider as a recommendation from ENT, no official ENT consult). Discharged on prednisone 40 mg daily for 4 additional days to complete 5 day burst. Continued to monitor blood glucose ACHS while on glucocorticoids and low-dose correctional scale insulin. -Continued strict NPO initially and transitioned to full/soft diet. -Consulted speech for evaluation and treatment but was not available on the weekend. -Continued supportive care: IVF hydration until adequately hydrated, pain control, scopolamine patch as needed for secretions and oral suction at bedside. Ordered supplemental oxygen if needed to maintain oxygen saturation 88-92% but patient saturated well on room air. -Continued Toradol 30 mg every 8 hours x 5 doses and dilaudid 0.5 mg every 4 hours as needed for breakthrough pain. Narcan as needed for oversedation. Discharge with prescription Dilaudid 0.5 mg every 4 hours as needed for severe pain. 2. Acute ineffective airway clearance, present on admission. Resolved. -At risk for airway obstruction and likely would be difficult intubation due to morbid obesity and submandibular infection. -Continued strict NPO initially and transitioned to full/soft diet. -Consulted respiratory therapy for evaluation and treatment and to monitor airway. Communication order placed to have equipment available for nasal intubation, in an event of an emergency. Ordered supplemental oxygen if needed to maintain oxygen saturation 88-92% but patient saturated well on room air. -Continued supportive care: IVF hydration until adequately hydrated, pain control, scopolamine patch as needed for secretions, and oral suction at bedside 3. Acute hypovolemia, present on admission. Resolved. -Received 550 mL NS bolus in ED. Continued IV fluids until adequately hydrated then discontinued. 4. Hypothyroidism, chronic, present on admission. Stable. -Continued levothyroxine 125 mcg equivalent 62.5 mcg IV. Discharged on home levothyroxine 125 mcg daily. 5. GERD with hiatal hernia, chronic, present on admission. Stable. -Continued Protonix 40 mg IV twice daily and discharged on home PPI dose. 6. Morbid obesity, chronic, present on admission. Stable. -BMI 60.3. -Counseled patient on lifestyle modification including: Diet and exercise. -Patient reports she has plan for outpatient gastric bypass. 7. Obstructive sleep apnea, chronic, present on admission. Stable. -Not currently on CPAP. -Recommended outpatient sleep study. Status at Discharge Functional status at discharge: independent ambulation Overall status at discharge: patient is progressing back to baseline Exam Vital Signs (past 8 hours): - 04/10/19 04:29 04/10/19 07:54 Temperature 97.7 F 97.5 F L Pulse Rate 91 H 61 Respiratory Rate 20 20 Blood Pressure 146/83 H 134/74 Pulse Oximetry 96 95 Oxygen Delivery Method Room Air Oxygen Flow Rate 0 Narrative Exam Narrative: General: Middle-aged female sitting in bed and in no acute distress, well- developed, well-nourished, appropriately interactive. HEENT: Normocephalic, atraumatic. External ears without defect. Pupils equal, round, and reactive to light and accommodation. Anicteric sclerae, moist conjunctivae, and no lid lag. Oropharynx free of erythema and cobble stoning with moist mucosa. Submandibular fullness on left side without fluctuance. Protecting airway adequately. Neck: Supple with full range of motion. No jugular venous distension. No bruits. No lymphadenopathy or thyromegaly. Cardiovascular: Regular rate and rhythm without murmurs, rubs, or gallops appreciated. Pulmonary: Clear to auscultation bilaterally without crackles, wheezes, or rhonchi. Normal respiratory effort with no use of accessory muscles. Abdomen: Soft, morbidly obese, bowel sounds present, nontender, nondistended. No hepatosplenomegaly or masses appreciated. Extremities: No clubbing or cyanosis. Bilateral lower extremity nonpitting edema to pretibial area bilaterally. Skin: Normal temperature, turgor, and texture; no rash, ulcers, or subcutaneous nodules appreciated. Neurological: Cranial nerves grossly intact. Psychiatric: Normal mood and affect. Alert and oriented to person, place, and time. Objective Labs Result Diagrams: 04/09/19 00:35 04/09/19 00:35 Labs: Laboratory Results - last 24 hr 04/09/19 06:53 Nasal Screen MRSA (PCR) Negative for mrsa Discharge Plan Discharge Plan Patient Disposition: Home Discharge comment: You're being discharged home. You have been prescribed Augmentin twice daily for 13 days to treat your tooth infection. Please keep your appointment to have your tooth extracted on 04/14/2019 unless you're able to have your tooth extracted sooner. You have also been prescribed prednisone 40 mg daily for 3 additional days to help with swelling and Dilaudid 0.5 mg every 4 hours as needed for severe pain. Please use Dilaudid sparingly and do not operate a motor vehicle or use alcohol or drugs while on this medication. Discharge Med Rec/Prescriptions Prescriptions: New polyethylene glycol 3350 17 gram Powder In Packet 17 gm PO DAILY Qty: 1 RF: 0 prednisone 20 mg Tablet 40 mg PO DAILY Qty: 3 RF: 0 hydromorphone 2 mg Tablet 0.5 mg PO Q4HR PRN (Reason: Pain, Severe (7-10)) Qty: 20 RF: 0 docusate sodium [DOK] 100 mg Capsule 100 mg PO BID Qty: 30 RF: 0 amoxicillin-pot clavulanate [Augmentin] 875-125 mg Tablet 1 tab PO BID Qty: 26 RF: 0 Continued levothyroxine 125 mcg tablet 125 mcg PO DAILY RF: 0 duloxetine 60 mg capsule,delayed release(DR/EC) 120 mg PO DAILY RF: 0 tizanidine 4 mg tablet 4 mg PO PRN PRN (Reason: Muscle Spasm) RF: 0 lansoprazole [Prevacid 24Hr] 15 mg Capsule,Delayed Release(Dr/Ec) 15 mg PO DAILY RF: 0 Provider Discharge Instructions Diet: Diet as Tolerated Diet comment: Soft Activity: Activity as tolerated Visit Report/Discharge Packet Instructions: Soft Diet, DI for Tooth Abscess, Prednisone, Hydromorphone, Amoxicillin/Clavulanate Potassium (By mouth) Discharge Data Attending Provider: Ashwin Hall Admit Date/Time: 04/09/19 02:39 Discharges patient from system. Discharge Date/Time: 04/10/19 12:30 Quality VTE Deep Vein Thrombosis/Pulmonary Embolism Present on Admission: No
[2019-04-10] MEDS: INSULIN ASPART 100 UNIT/ML INSULN PEN SUBCUT ×2 (08:17→12:07)
[2019-04-10] MEDS: HYDROMORPHONE 2 MG TABLET 0.5 MG PO (08:33)
[2019-04-10] MEDS: AMOXICILLIN/CLAV 875/125 MG 1 TAB PO (08:37)
[2019-04-10] MEDS: DOCUSATE 100 MG CAPSULE PO (08:37)
[2019-04-10] MEDS: predniSONE 20 MG TABLET 40 MG PO (08:38)
[2019-04-10] MEDS: DULOXETINE 30 MG CAPSULE 120 MG PO (08:38)
[2019-04-10] MEDS: POLYETHYLENE GLYCOL 3350 17 GM POWD.PACK PO (08:38)
--- NOTE | 2019-04-10 10:21 | PC.NURSE ---
Day Shift Note Discharge orders received. Pt to leave after lunch with spouse. Discharge instructions given to pt on tooth abscess, prednisone, dilaudid, and augmentin. All questions answered. Meds from pharmacy returned to pt and with spouse. Prescriptions given to pt.
--- NOTE | 2019-04-10 13:00 | PC.NURSE ---
Pt to dc home per order. DC teaching completed by primary RN (see note). Pt stayed for lunch by request. After eating, pt transferred to w/c and was escorted to POV by [employer] with all belongings in no acute distress at 1230.
== END 2019-04-10 12:30 | disposition home or self-care (01) ==
LOC: ED 02:14 → ICU 06:24 → AC 04-10 09:09 → ICU 04-10 09:12
PROVIDERS: Admitting Provider Nurse Practitioner Gerontology; Emergency Provider Emergency Medicine; Visit Provider Nurse Practitioner Gerontology
DX: K12.2 Cellulitis and abscess of mouth (principal); K03.81 Cracked tooth; Z68.44 Body mass index [BMI] 60.0-69.9, adult; E66.01 Morbid (severe) obesity due to excess calories; E86.1 Hypovolemia; M79.7 Fibromyalgia; I10 Essential (primary) hypertension; E03.9 Hypothyroidism, unspecified; J45.909 Unspecified asthma, uncomplicated; R73.03 Prediabetes
CPT/HCPCS: 36415; 36591; 70491; 80053; 81001; 82962; 83605; 84145; 85025; 87040; 87797; 96361; 96365; 96366; 96372; 96375; 96376; 99283; 99284; G0378; C9113; J0295; J1100; J1170; J1644; J1885; J2270; Q9967